=== PATIENT | female | born 1945 | race Caucasian/White ===

== ENCOUNTER 2016-03-18 05:36 | Day surgery (SDC) | payer MEDICARE ==
[2016-03-17 11:08] LABS: BASOPHILS 0.6 % (0.0-2.0); EOSINOPHILS 4.4 % (0-7); HEMATOCRIT 37.9 % (36.0-48.0); HEMOGLOBIN 12.5 g/dL (12-16); IMMATURE GRANULOCYTES 0.1 % (0-5); LYMPHOCYTES 39.5 % (15-50); MCV 91.1 fL (80.0-100.0); MEAN PLATELET VOLUME 9.6 fL (7.4-10.4); MONOCYTES 6.1 % (2-11); NEUTROPHILS 49.3 % (40-80); RBC 4.16 10x6/uL (4.00-5.40); RDW 14.5 % (11.5-14.5); WBC 6.9 10x3/uL (4.8-10.8)
[2016-03-17 11:26] LABS: CALCIUM 9.5 mg/dL (8.5-10.1); CARBON DIOXIDE 26.8 mmol/L (21.0-32.0); CREATININE - SERUM 1.1 mg/dL (0.6-1.3); PLATELET COUNT 193 10x3/uL (130-400); POTASSIUM - SERUM 3.8 mmol/L (3.5-5.1)
[2016-03-17 11:27] LABS: APTT 26.7 SECONDS (22.8-39.4); INR 1.06 (0.85-1.17); PROTIME 13.7 SECONDS (11.6-15.0)
[~2016-03-18] VITALS: Ht 165.1 cm; Wt 100.2 kg
[~2016-03-18 05:36] MED LIST: ASPIRIN 81 MG E81 MG PO; ASPIRIN325 MG PO; AVAPRO300 MG PO; BENICAR20 MG PO; BENICAR5 MG PO; CALCIUM CITRATE1 TAB PO; CELEXA20 MG PO; DESERYL100 MG PO; FOLIC ACID1 MG PO; IMDUR30 MG PO; ISOSORBIDE MONO30 M1 PO; MECLIZINE HCL25 MG PO; METFORMIN HCL500 M1 PO; METHOTREXATE2.5 MG PO; NEXIUM40 MG PO; NIASPAN500 MG PO; NORCO 10/325 TA1 TA1 PO; NORVASC10 MG PO; PLAVIX75 MG PO; PRAVACHOL20 MG PO; PROTONIX40 MG PO; ULTRAM50 MG PO; ZESTORETIC 20/21 TAB PO
[2016-03-18 09:40] VITALS: BP 129/68; Ht 165.1 cm; Wt 100.2 kg
[2016-03-18] MEDS ORDERED: HYDROCODONE-APA1 TAB PO (13:10)
--- NOTE | 2016-03-18 13:23 | NUR ---
THE PATIENT REPORTED SHE HAD A COUGH PRIOR TO SURGERY AND AWAKENED IN THE RR COUGHING
--- NOTE | 2016-03-25 13:47 | OP ---
PATIENT NAME: NAKIA MEJIA MEDICAL RECORD: [id number] :49 LOCATION:D.OPS ADMISSION DATE: SURGEON: SIDNEY ERWIN MD DATE OF OPERATION: 03/18/2016 PREOPERATIVE DIAGNOSES: 1. Biliary dyskinesia. 2. Hypertension. 3. Hyperlipidemia. 4. Coronary artery disease. 5. History of right renal cell carcinoma of the kidney. POSTOPERATIVE DIAGNOSES: 1. Biliary dyskinesia. 2. Hypertension. 3. Hyperlipidemia. 4. Coronary artery disease. 5. History of right renal cell carcinoma of the kidney. PROCEDURE: Laparoscopic cholecystectomy. SURGEON: Sidney Erwin MD REPORT OF PROCEDURE: The patient's abdomen was prepped and draped in sterile fashion. A cutdown was made on the superior aspect of the umbilicus, 0 Vicryls were placed in the fascia bilaterally and the fascia was incised with 15-blade. I then bluntly entered the peritoneal cavity and placed a 12-mm Lawson port. Under direct visualization, a 5 mm trocar was placed in the epigastrium and another 5-mm trocar was placed in the right subcostal region. There were some adhesions present from previous right subcostal incision for his nephrectomy. We took down some of these adhesions using blunt dissection. The liver itself was actually adherent to the anterior abdominal wall. I was able to clearly visualize the gallbladder and did not appear to be distended or inflamed. The cystic artery and duct were dissected free and these were clipped proximally and distally and ligated in standard fashion. The gallbladder was then taken off the liver bed using electrocautery and placed in the right upper quadrant. We irrigated out the right upper quadrant and any bleeding from the liver bed was treated with electrocautery. At this point, the ports and insufflation were then removed and the gallbladder was taken out through the umbilicus. The umbilical fascia was closed with interrupted 0 Vicryls times 3. The wounds were irrigated out with normal saline and then infused with 10 mL of 0.25% Marcaine with epinephrine. The skin incisions were all closed with subcutaneous 5-0 Monocryl and dressed appropriately. COMPLICATIONS: None. CONDITION: Stable. ANESTHESIA: General endotracheal and local. BLOOD LOSS: Minimal. TRANSINT:[id number] Voice Confirmation ID: [id number] DOCUMENT ID: [id number] OPERATIVE REPORT [id number] JACKIE,NAKIASIDNEY GONZALES MD at 1347 CC: TIN SCHAFFER MD and TAHMINA REED DO [id number] DICTATION DATE: 03/18/16 1320 TELEPHONIC RN: 03/18/16 1406 [facility] SD[facility] 03/18/16 [facility] [address] [id number]
== END 2016-03-18 15:25 | disposition home or self-care (01) ==
LOC: D.OPS 05:36 → D.PAN 10:45 → D.OPS 15:25
PROVIDERS: Anesthesiology; Surgery
DX: K81.1 Chronic cholecystitis (principal); I10 Essential (primary) hypertension; E78.5 Hyperlipidemia, unspecified; I25.10 Atherosclerotic heart disease of native coronary artery without angina pectoris; Z85.53 Personal history of malignant neoplasm of renal pelvis

== ENCOUNTER 2017-06-17 09:10 | Outpatient (CLI) | payer MEDICARE ==
[~2017-06-17] VITALS: Ht 165.1 cm; Wt 97.3 kg
--- NOTE | ~2017-06-17 | OP ---
PATIENT NAME: NAKIA MEJIA MEDICAL RECORD: [id number] :49 LOCATION:D.[facility] ADMISSION DATE: SURGEON: OLY ALMODOVAR MD DATE OF OPERATION: 06/17/2017 PROCEDURES: 1. Left heart catheterization. 2. Selective coronary angiography. 3. Left ventriculogram. INDICATION: Chest pain compatible with angina and coronary artery disease. PROCEDURE IN DETAIL: After informed consent was obtained and after detailed explanation of risks, benefits as well as alternative therapies, the patient elected to proceed with angiogram and angioplasty. The right radial area was prepped and draped in normal sterile fashion. Right radial artery was cannulated via modified Seldinger technique with placement of 6-Swedish sheath. All catheters were exchanged through this sheath. FINDINGS: Left ventriculogram was performed in standard 30-degree GAY view, reveals good cardiac wall motion, ejection fraction 50% to 55%. SELECTIVE CORONARY ANGIOGRAPHY: 1. Left main has no significant angiographic disease. 2. Left anterior descending has previously placed stent that is widely patent, no significant restenosis. No disease elsewise at the LAD or its branches. 3. Left circumflex has moderate irregularities, but no flow-limiting stenosis. 4. Right coronary artery has moderate irregularities, but no flow-limiting stenosis. OVERALL IMPRESSION: Wide patency of the previously placed stent, no disease elsewise, preserved left ventricular function. Continue medical management of the coronary artery disease and cardiac risk factors. TRANSINT:[id number] Voice Confirmation ID: [id number] DOCUMENT ID: [id number] OLY ALMODOVAR MD at 0956 CC: [id number] DICTATION DATE: 06/17/17 1158 WINDOWS SYSTEM ADMIN: 06/17/17 1422 DEP CLI 06/17/17 [place] [id number] [place] [id number]
--- NOTE | ~2017-06-17 | HEMODYNAMI ---
PATIENT:NAKIA MEJIA MEDICAL RECORD: [id number] : 49 LOCATION:[place] ADMISSION DATE: 06/17/17 Generatedon:06/17/201711:59 Patient name: NAKIA MEJIA Patient #: [id number] : 1945 Date of study: 06/17/2017 Page: Of Hemodynamic Procedure Report Patient Data Patient Demographics Procedure consent was obtained First Name: NAKIA Gender: Female Last Name: JACKIE : 1945 Middle Initial: CHELLY Age: 71 year(s) Patient #: [id number] Race: SSN: [id number] Additional ID: [id number] Contact details [address]: [address] [place] [address] State: [place] City: [place] Zip code: [address] Past Medical History Allergies Allergen Reaction Date Comments Reported Other allergy 07/04/2015 MACROBID Other allergy 02/04/2016 Macrobid Other allergy 06/17/2017 Macrobid Admission Admission Data Admission Date: 06/17/2017 Admission Time: 9:10 Lab Results Lab Result Date: 06/17/2017 Lab Result Time: 9:40 Biochemistry Name Units Result Min Max BUN mg/dl 22 --(----)-* 7 18 Creatinine mg/dl 1.5 --(----)-* 0.6 1.3 CBC Name Units Result Min Max Hematocrit % 34.6 *-(----)-- 42 54 Hemoglobin g/dl 11.5 *-(----)-- 13.5 17.5 Procedure Procedure Types Cath Procedure Diagnostic Procedure LHC LHC w/Coronaries Procedure Description Procedure Date Procedure Date: 06/17/2017 Procedure Start Time: 11:47 Procedure End Time: 11:57 Procedure Staff Name Function Sacha Martin MD Performing Physician Chandana Estevez RN Nurse Deedee Palm RT Scrub Varun De Leon RT Monitor Procedure Data Cath Procedure Fluoroscopy Diagnostic fluoroscopy Total fluoroscopy Time: 3.7 time: 3.7 min min Diagnostic fluoroscopy Total fluoroscopy dose: 464 dose: 464 mGy mGy Contrast Material Contrast Material Type Amount (ml) Isovue 300 67 Entry Location Entry Primary Successful Side Size Upsize Upsize Entry Closure Aguirre ccessful Closure Location (Fr) 1 (Fr) 2 (Fr) Remarks Device Remarks Radial Right 6 Fr Mechanical artery Short Compression Estimated blood loss: 5 ml Diagnostic catheters Device Type Used For End Catheter Placement DIAGNOSTIC AR 2 MOD 5 Fr Procedure catheter ([id number]) DIAGNOSTIC Pigtail 5Fr Procedure catheter ([id number]) Procedure Complications No complications Procedure Medications Medication Administration Route Dosage 0.9% NaCl I.V. 100 ml/hr Oxygen etCO2 Nasal cannula 2 l/min Heparin Flush Bag added to field 2 bags (1000units/500ml NS) Lidocaine 2% added to field 20 Radial Cocktail added to field 1 syringe (Verapomil 2mg/Nitro 400mcg/Heparin 1500units) Versed I.V. 2 mg Fentanyl I.V. 100 mcg Versed I.V. 1 mg Radial Cocktail I.A. 1 syringe (Verapomil 2mg/Nitro 400mcg/Heparin 1500units) Hemodynamics Rest HGB: 11.5 (g/dl) Heart Rate: 84 (bpm) Snapshots Pre Cath Intra NCS Post Cath Vital Signs Time Heart Resp SPO2 etCO2 NIBP (mmHg) Rhythm Pain Sedation Rate (ipm) (%) (mmHg) Status Level (bpm) 11:40:03 84 17 98 33.6 151/89(112) NSR 0 (11) 10(A) , No pain 11:45:04 84 14 96 37.4 146/83(101) NSR 0 (11) 10(A) , No pain 11:49:57 87 14 95 34.3 121/63(83) NSR 0 (11) 9(A) , No pain 11:54:46 89 14 91 34.3 124/64(95) NSR 0 (11) 9(A) , No pain Medications Time Medication Route Dose Verified Delivered Reason Notes Effectiveness by by 11:28:54 0.9% NaCl I.V. 100 Chandana Chandana Per ml/hr Herb Estevez physician RN RN 11:29:06 Oxygen etCO2 2 l/min Chandana Chandana Per Nasal Herb Estevez physician cannula RN RN 11:36:49 Heparin Flush added 2 bags Chandana Chandana used for Bag to Herb Estevez procedure (1000units/500ml field RN RN NS) 11:36:59 Lidocaine 2% added 20ml Chandana Chandana for local to vial Lorigan Herb anesthetic RN RN 11:37:38 Radial Cocktail added 1 Chandana Chandana used for (Verapomil to syringe Herb Estevez procedure 2mg/Nitro RN RN 400mcg/Heparin 1500units) 11:44:27 Versed I.V. 2 mg Chandana Chandana for sedation Herb Estevez RN RN 11:44:35 Fentanyl I.V. 100 mcg Chandana Chandana for sedation Herb Estevez RN RN 11:47:31 Versed I.V. 1 mg Chandana Chandana for sedation Herb Estevez RN RN 11:49:25 Radial Cocktail I.A. 1 Chandana Sacha for (Verapomil syringe Herb Martin MD vasodilation 2mg/Nitro RN 400mcg/Heparin 1500units) Procedure Log Time Note 11:15:01 Chandana Estevez RN sent for patient. Start room use. 11:20:33 Informed consent obtained and on chart 11:21:31 Time tracking: Regular hours (M-F 7:00 - 5:00) 11:21:37 Plan of Care:Hemodynamics will remain stable., Cardiac rhythm will remain stable., Comfort level will be maintained., Respiratory function will remain adequate., Patient/ family verbilizes understanding of procedure., Procedure tolerated without complication., Recovers from procedure without complications.. 11:23:59 Patient received from Pre/Post Procedure Room to CCL 1 Alert and oriented. Tansferred to table in Supine position. 11:24:13 Warm blankets applied, and bharati hugger turned on for patient comfort. 11:24:13 Correct patient and procedure confirmed by team. 11:24:15 ECG and BP/O2 sat monitors applied to patient. 11:24:26 H&P Date Dictated: 06/15/2017 Within 30 days and on chart., H&P Addendum completed by physician on day of procedure. (MUST COMPLETE FOR ALL OUTPATIENTS). 11:24:28 Pre-procedure instructions explained to patient. 11:24:28 Pre-op teaching completed and patient verbalized understanding. 11:24:29 Family in waiting room. 11:24:31 Patient NPO since Midnight. 11:24:44 Patient allergic to Other allergyMacrobid 11:24:46 Is the patient allergic to Iodine/contrast media? No. 11:28:54 0.9% NaCl 100 ml/hr I.V. was administered by Chandana Estevez RN; Per physician; 11:29:06 Oxygen 2 l/min etCO2 Nasal cannula was administered by Chandana Estevez RN; Per physician; 11:36:49 Heparin Flush Bag (1000units/500ml NS) 2 bags added to field was administered by Chandana Estevez RN; used for procedure; 11:36:59 Lidocaine 2% 20ml vial added to field was administered by Chandana Estevez RN; for local anesthetic; 11:37:38 Radial Cocktail (Verapomil 2mg/Nitro 400mcg/Heparin 1500units) 1 syringe added to field was administered by Chandana Estevez RN; used for procedure; 11:37:44 Is patient on blood thinner?Yes 11:37:46 ACC The patient was administered the following blood thiners within the last 24 hours: ACCPlavix 11:37:48 Patient diabetic? Yes. 11:37:50 If diabetic: On Metformin? Yes 11:37:52 If on Metformin: Last Dose? 06/15/2017 11:37:55 Previous problem with sedation/anesthesia? No ? 11:37:56 Snore? Yes 11:37:57 Sleep apnea? No 11:37:59 Deviated septum? No 11:37:59 Opens mouth fully? Yes 11:38:00 Sticks out tongue? Yes 11:38:03 Airway obstruction? No ? 11:38:03 Dentures? Yes in tight 11:38:13 Modified Kelby's test Ulnar < 7 seconds 11:38:16 Patient pain scale 0/10 ?. 11:38:28 IV patent on arrival in left antecubital with 0.9% NaCl at [facility]. 11:38:51 Vital chart was started 11:39:38 Lab Result : BUN 22 mg/dl 11:39:38 Lab Result : Creatinine 1.5 mg/dl 11:39:38 Lab Result : Hemoglobin 11.5 g/dl 11:39:38 Lab Result : Hematocrit 34.6 % 11:39:40 Lab results completed and on chart. 11:39:42 Right Radial & Right Groin area was prepped with chlora-prep and draped in sterile fashion 11:39:43 Alarms reviewed by R. N. 11:39:44 Sharps counted by scrub and verified by R.N. 11:39:46 Use device set Radial Dx or PCI 11:39:47 ACIST Syringe (95142) opened to sterile field. 11:39:47 Medline Cath Pack ([id number]) opened to sterile field. 11:39:48 Bag Decanter (2002S) opened to sterile field. 11:39:49 ACIST Hand Control (33752) opened to sterile field. 11:39:49 ACIST Manifold (74465) opened to sterile field. 11:39:49 Tegaderm 4 x 4 (1626W) opened to sterile field. 11:39:51 MBrace Wrist Support ([id number]) opened to sterile field. 11:39:52 DIAGNOSTIC WIRE .035 260cm J wire (572831) opened to sterile field. 11:40:01 SHEATH 6Fr Prelude Radial ([id number]) opened to sterile field. 11:40:11 Baseline sample Acquired. 11:40:17 Rhythm: sinus rhythm 11:40:19 Full Disclosure recording started 11:40:25 Physician paged 11:43:37 Zero performed for pressure channel P1 11:43:41 Zero performed for pressure channel P1 11:43:48 Physician arrived 11:43:49 --------ALL STOP TIME OUT------ 11:43:49 Final Timeout: patient, procedure, and site verified with staff and physician. All members of the team are in agreement. 11:43:59 Right Radial & Right Groin site verified by team. 11:44:02 Physical assessment completed. ASA score P 2 - A patient with mild systemic disease as per Sacha Martin MD. 11:44:05 Sedation plan: IV Moderate Sedation Medication:Versed, Fentanyl 11:44:27 Versed 2 mg I.V. was administered by Chandana Estevez RN; for sedation; 11:44:35 Fentanyl 100 mcg I.V. was administered by Chandana Estevez RN; for sedation; 11:47:31 Versed 1 mg I.V. was administered by Chandana Estevez RN; for sedation; 11:47:54 Procedure started. 11:47:58 Local anesthetic to right radial artery with Lidocaine 2% by Sacha Martin MD.INITIAL ACCESS ONLY 11:49:20 A 6 Fr Short sheath was inserted into the Right Radial artery 11:49:25 Radial Cocktail (Verapomil 2mg/Nitro 400mcg/Heparin 1500units) 1 syringe I.A. was administered by Sacha Martin MD; for vasodilation; 11:49:34 A DIAGNOSTIC AR 2 MOD 5 Fr catheter ([id number]) was advanced over the wire and used for Procedure. 11:51:07 RCA angiography performed. 11:51:15 Catheter exchanged over wire. 11:51:27 A DIAGNOSTIC Pigtail 5Fr catheter ([id number]) was advanced over the wire and used for Procedure. 11:52:41 GUIDE 6FR XBLAD 4.0 catheter ([id number]) opened to sterile field. 11:53:09 LV gram done using GAY 11:53:12 Injector settings: Ml/sec: 10, Volume: 20, 11:53:22 EF : 55 % 11:53:24 Catheter removed. 11:53:33 6 Fr xblad 4 guide catheter was inserted over the wire 11:54:53 LCA angiography performed. 11:55:34 Catheter removed. 11:55:43 TR BAND Standard ([id number]) opened to sterile field. 11:55:53 Sheath removed intact; hemostasis achieved with Mechanical Compression to the Right Radial artery. 11:55:55 Procedure ended.(Physican Out) 11:56:30 Fluoroscopy time 03.70 minutes. 11:56:34 Flurop Dose total: 464 11:56:34 Fluoroscopy dose: 464 mGy 11:56:37 Contrast amount:Isovue 300 67ml. 11:56:38 Sharps counted by scrub and verified by R.N. 11:56:40 TR band inflated with 12cc of air. 11:56:41 Insertion/operative site no bleeding no hematoma. 11:56:45 Post right radial artery:stable, soft, clean and dry 11:56:47 Post Procedure Pulses reassessed and unchanged 11:56:49 Post-procedure physical assessment completed. ASA score P 2 - A patient with mild systemic disease as per Sacha Martin MD. 11:56:52 Post procedure rhythm: unchanged. 11:56:54 Estimated blood loss: 5 ml 11:56:55 Post procedure instruction explained to patient.Patient verbalizes understanding. 11:56:55 Patient needs reinforcement of post procedure teaching. 11:57:22 Procedure and supply charges have been captured, reviewed, submitted and are correct. 11:57:24 Procedure Complication : No complications 11:57:26 Vital chart was stopped 11:57:26 See physician's report for complete and final results. 11:57:28 Report given to Pre/Post Procedure Room. 11:57:30 Patient transfered to Pre/Post Procedure Room with Stretcher. 11:57:32 Procedure ended. 11:57:32 Full Disclosure recording stopped 11:57:35 End room use (Document Last) Device Usage Item Name Manufacture Quantity Catalog Number Hospital Part Current M inimal Lot# / Charge Number Stock Stock Serial# Code ACIST Syringe Acist 1 69047 846409 601044 901253 2 0 (16490) [employer] Inc Medline Cath Cardinal 1 [id number] 098442 19351 971193 5 Pack Health ([id number]) Bag Decanter Microtek 1 2001S 133123 48342 040822 5 (2001S) Medical Inc. ACIST Hand Acist 1 02743 991317 086090 392401 5 Control (18409) [employer] Inc ACIST Manifold Acist 1 84813 688887 464768 073680 5 (14700) Medical Systems Inc Tegaderm 4 x 4 3M 1 1626W 011518 956984 423226 5 (1626W) MBrace Wrist Advanced 1 140-0250-00 205904 38253 825036 5 Support Vascular ([id number]) Dynamics DIAGNOSTIC WIRE St Juve 1 926804 963627 196841 969059 3 0 .035 260cm J wire (918680) SHEATH 6Fr Merit 1 [id number] 330855 245087 600277 5 Prelude Radial Medical ([id number]) DIAGNOSTIC AR 2 Cardinal 1 [id number] 542268 005156 624796 2 0 MOD 5 Fr Health catheter (367399K) DIAGNOSTIC Cardinal 1 [id number] 903402 743321 977526 5 Pigtail 5Fr Health catheter (318834C) GUIDE 6FR XBLAD Cardinal 1 [id number] 351165 830933 963809 3 4.0 catheter Health (06347953) TR BAND Terumo 1 [id number] 174356 956286 710794 4 0 Standard ([id number]) Signature Audit [place] Stage Time Signature Unsigned Intra-Procedure 06/17/2017 Varun De Leon 11:59:10 AM RT(R) Signatures Monitor : Varun De Leon RT Signature : Date : Time : [place] [id number] [facility] [place] [address]
[~2017-06-17 09:10] MED LIST changes: +HYDROCODONE-APA1 TAB PO
[2017-06-17] MEDS ORDERED: PLAVIX75 MG PO (09:32)
[2017-06-17] MEDS ORDERED: CYMBALTA20 MG PO (09:34)
[2017-06-17] MEDS ORDERED: CYMBALTA30 MG (09:35)
[2017-06-17 09:51] VITALS: BP 112/70; Ht 165.1 cm; Wt 97.3 kg
[2017-06-17 09:51] LABS: HEMATOCRIT 34.6 % (36.0-48.0); HEMOGLOBIN 11.5 g/dL (12-16); IMMATURE GRANULOCYTES 0.2 % (0-5); LYMPHOCYTES 26.8 % (15-50); MCH 29.6 pg (26.0-34.0); MCHC 33.2 g/dL (31.0-37.0); MCV 89.2 fL (80.0-100.0); MEAN PLATELET VOLUME 9.9 fL (7.4-10.4); MONOCYTES 9.2 % (2-11); NEUTROPHILS 58.8 % (40-80); PLATELET COUNT 189 10x3/uL (130-400); RBC 3.88 10x6/uL (4.00-5.40); RDW 15.1 % (11.5-14.5); WBC 5.8 10x3/uL (4.8-10.8)
[2017-06-17 10:00] LABS: ANION GAP 14.1 mmol/L (8-16); CALCIUM 9.1 mg/dL (8.5-10.1); CARBON DIOXIDE 23.8 mmol/L (21.0-32.0); CREATININE - SERUM 1.5 mg/dL (0.6-1.3); POTASSIUM - SERUM 3.9 mmol/L (3.5-5.1)
== END 2017-06-17 14:40 | disposition home or self-care (01) ==
LOC: D.CATH 09:10
PROVIDERS: Internal Medicine Interventional Cardiology
DX: I25.119 Atherosclerotic heart disease of native coronary artery with unspecified angina pectoris (principal); Z95.5 Presence of coronary angioplasty implant and graft; Z01.812 Encounter for preprocedural laboratory examination

== ENCOUNTER 2017-10-31 00:47 | Emergency (ER) | payer MEDICARE ==
[2017-06-17 09:51] VITALS: Ht 165.1 cm; Wt 98.0 kg
[~2017-10-31] VITALS: Ht 165.1 cm; Wt 98.0 kg
[~2017-10-31 00:47] MED LIST changes: +CYMBALTA20 MG PO; +CYMBALTA30 MG
[2017-10-31] MEDS ORDERED: ISOSORBIDE MONO30 M1 PO (01:14)
[2017-10-31] MEDS ORDERED: CELEXA20 MG PO (01:14)
[2017-10-31] MEDS ORDERED: METHOTREXATE2.5 MG (01:15)
[2017-10-31] MEDS ORDERED: ZESTORETIC 20/21 TAB PO (01:15)
[2017-10-31] MEDS ORDERED: PRAVACHOL20 MG PO (01:16)
[2017-10-31] MEDS ORDERED: PEPCID AC20 MG PO (01:16)
[2017-10-31] MEDS ORDERED: NIASPAN500 MG (01:17)
[2017-10-31] MEDS ORDERED: FOLIC ACID1 MG (01:17)
[2017-10-31] MEDS ORDERED: HYDROCODONE-APA1 TAB (01:17)
[2017-10-31] MEDS ORDERED: VOLTAREN75 MG PO (02:11)
[2017-10-31 02:56] VITALS: BP 125/68
== END 2017-10-31 02:58 | disposition home or self-care (01) ==
LOC: D.ER 00:47
DX: S99.911A Unspecified injury of right ankle, initial encounter (principal); W18.30XA Fall on same level, unspecified, initial encounter; Y93.89 Activity, other specified; Y92.019 Unspecified place in single-family (private) house as the place of occurrence of the external cause; M25.561 Pain in right knee; Z86.73 Personal history of transient ischemic attack (TIA), and cerebral infarction without residual deficits; E11.9 Type 2 diabetes mellitus without complications; I10 Essential (primary) hypertension; I25.10 Atherosclerotic heart disease of native coronary artery without angina pectoris; Z85.520 Personal history of malignant carcinoid tumor of kidney; Z90.5 Acquired absence of kidney